=== PATIENT | female | born 1995 | race Caucasian/White ===

== ENCOUNTER → 2024-08-21 11:23 | Outpatient (CLI) | payer OTHER, SELFPAY | PROVIDERS: Visit Provider Nurse Practitioner Family | DX: R30.0 Dysuria (principal) | CPT/HCPCS: 87077; 87086; 87186 ==

== ENCOUNTER → 2025-06-18 18:02 | Outpatient (CLI) | payer OTHER, SELFPAY | PROVIDERS: Visit Provider Registered Nurse | DX: R30.0 Dysuria (principal); N94.89 Other specified conditions associated with female genital organs and menstrual cycle | CPT/HCPCS: 87077; 87086; 87186; 87210 ==

== ENCOUNTER → 2025-08-22 16:27 | Outpatient (CLI) | payer OTHER, SELFPAY ==
[2025-08-22 17:32] LABS: Hemoglobin A1C% w Est Avg Glu 4.7 % (4.0-6.0)
[2025-08-22 17:42] LABS: Add Manual Diff / Slide Review NO; Hematocrit 38.1 % (36-46); Hemoglobin 13.4 g/dL (12.0-16.0); Lymphocytes Absolute Auto 1200 /uL (1100-4500); Mean Corpuscular HGB Conc 35.3 % (30-36); Mean Corpuscular Hemoglobin 31.3 PG (26-34); Mean Corpuscular Volume 88.8 fL (80-100); Platelet Count 283 X10^3/uL (150-400)
[2025-08-22 18:03] LABS: Free T4, Direct Thyroxine 1.06 ng/dL (0.78-2.19)
[2025-08-22 18:17] LABS: Thyroid Stimulating Hormone 1.65 uIU/mL (0.47-4.68)
[2025-08-23 14:35] LABS: Hepatitis B Surface Antigen NEGATIVE s/c (NEGATIVE)
[2025-08-23 14:52] LABS: HIV 1 & 2 Ab/Ag 4th Gen Combo NEGATIVE (NEGATIVE); Hep C Virus Ab w/Reflex Quant NEGATIVE s/c (NEGATIVE)
== END ==
PROVIDERS: Referring Provider Family Medicine; Visit Provider Family Medicine
DX: Z34.01 Encounter for supervision of normal first pregnancy, first trimester (principal); E03.9 Hypothyroidism, unspecified; E28.2 Polycystic ovarian syndrome
CPT/HCPCS: 36415; 80055; 83036; 84439; 84443; 86787; 86803; 86850; 86900; 86901; 87389

== ENCOUNTER → 2025-08-24 14:45 | Outpatient (CLI) | payer OTHER, SELFPAY ==
[2025-08-24 15:12] LABS: Appearance Urine UA CLEAR; Bilirubin Urine UA NEGATIVE (NEGATIVE); Color Urine UA YELLOW; Glucose Urine UA NEGATIVE (Negative); Ketones Urine UA NEGATIVE (NEGATIVE); Leukocyte Esterase Urine UA NEGATIVE (NEGATIVE); Nitrite Urine UA NEGATIVE (Negative); Occult Blood Urine UA NEGATIVE (Negative); Protein Urine UA NEGATIVE (Negative); Specific Gravity Urine UA 1.015 (1.000-1.035); Urobilinogen Urine UA 0.2 E.U./dL (0.2)
[2025-08-24 15:16] LABS: pH Urine UA 7.0 (4.5-8.0)
[2025-08-24 15:51] LABS: Natera Collection Specimen Collected
== END ==
PROVIDERS: Referring Provider Family Medicine; Visit Provider Family Medicine
DX: Z34.01 Encounter for supervision of normal first pregnancy, first trimester (principal)
CPT/HCPCS: 81003; 87086